=== PATIENT | female | born 1955 | race Caucasian/White ===

== ENCOUNTER 2016-11-05 16:28 | Emergency (ER) | payer OTHER ==
[2016-11-05 16:36] VITALS: BP 123/71
[2016-11-05] MEDS ORDERED: Lidocaine 1% MPF* 2 ML VIAL INJ ONE (17:26)
[2016-11-05] MEDS ORDERED: HYDROcodone/ACETAMIN 5-325 MG* 1 TAB PO ONE ×2 (18:14→18:47)
--- NOTE | 2016-11-05 18:35 | RAD ---
Indication: Right elbow pain. 4 views of the right elbow demonstrates no fracture. No joint effusion is noted. IMPRESSION: No fracture of the right elbow is noted.
--- NOTE | 2016-11-05 18:38 | RAD ---
Indication: Bilateral knee pain. AP, lateral and patellofemoral views of both knees demonstrates bilateral bipolar knee replacement in satisfactory position. No effusion is noted in either knee. IMPRESSION: Bipolar bilateral knee replacement in satisfactory position. No loosening is noted.
[2016-11-05] MEDS ORDERED: Cephalexin CAP* 500 MG PO ONE ×2 (18:46)
--- NOTE | 2016-11-05 20:14 | UC ---
Victor Manuel Persaud Alfonso, scribed for Emilio Mazariegos MD on 11/05/16 at 1728 . Minor Trauma HPI - HPI Summary HPI Summary: This patient is a 61 year old F presenting to [facility] accompanied by with a chief complaint of fall earlier today. Pt reports I fell onto the gravel getting off of the boat and hitting both knees, right elbow, and right hand. The CC is described as an ache. Pt rates the pain 7/10 in severity. Symptoms aggravated and alleviated by nothing. 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 PSHx of bilateral knee replacement. Patient medications reviewed this visit. - History of Current Complaint Chief Complaint: UCUpperExtremity Stated Complaint: ELBOW & KNEES INJURY Time Seen by Provider: 11/05/16 17:19 Hx Obtained From: Patient Onset/Duration: Sudden Onset, Lasting Hours - Earlier today, Still Present Onset Of Pain: Prior To Arrival Severity Initially: Moderate Severity Currently: Moderate Pain Intensity: 7 Pain Scale Used: 0-10 Numeric Mechanism Of Injury: Fall From Height Of: - Boat onto gravel Aggravating Factor(s): Nothing Alleviating Factor(s): Nothing - Allergies/Home Medications Allergies/Adverse Reactions: Allergies Allergy/AdvReac Type Severity Reaction Status Date / Time Amoxicillin Allergy Rash Verified 11/05/16 16:36 Latex Allergy Rash Verified 11/05/16 16:36 Sulfa Antibiotics Allergy Rash Verified 11/05/16 16:36 Home Medications: Home Medications DULoxetine DR CAP* [Cymbalta CAP*] 30 mg PO DAILY 11/05/16 [History Confirmed ] Lansoprazole [Prevacid] 30 mg PO 11/05/16 [History] celeCOXIB CAP* [CeleBREX CAP*] 100 mg PO DAILY 11/05/16 [History Confirmed 11/05] PMH/Surg Hx/FS Hx/Imm Hx - Surgical History Surgical History: Yes Surgery Procedure, Year, and Place: bilat knee replacement, sinus, appy, arthritis to thumd, d&c, bladder lift - Family History Known Family History: Positive: Cardiac Disease - CAD father, Other - Cancer - Social History Alcohol Use: Occasionally Substance Use Type: None Smoking Status (MU): Never Smoked Tobacco Review of Systems Constitutional: Other - Negative fever Musculoskeletal: Other: - Positive bilateral knee, right elbow, and right hand pain. All Other Systems Reviewed And Are Negative: Yes Physical Exam Triage Information Reviewed: Yes Appearance: Well-Appearing, No Pain Distress Vital Signs: Initial Vital Signs Temp 99.2 F 11/05/16 16:31 Pulse 73 11/05/16 16:31 Resp 18 11/05/16 16:31 BP 123/71 11/05/16 16:31 Pulse Ox 99 11/05/16 16:31 Vital Signs Reviewed: Yes Eyes: Positive: Other: - EOMI and MARJ ENT: Positive: Normal ENT inspection Neck: Positive: Supple, Nontender Respiratory: Positive: Chest non-tender, Lungs clear, Normal breath sounds Cardiovascular: Positive: RRR Abdomen Description: Positive: Nontender, Soft Bowel Sounds: Positive: Present Musculoskeletal: Positive: Other: - Tender right elbow. Abrasion at right elbow. 1.5cm sub cutaneous laceration not actively bleeding. Discomfort and mild tenderness at proximal thumb. Good ROM. Both knees with abrasion, full thickness lacerations, and stable to exam. Neurological: Positive: Alert Psychological: Positive: Age Appropriate Behavior Skin Exam: Normal Procedures - Laceration/Wound Repair 1 Location: Other - RUE Elbow Description: Linear Anesthesia: 1.0% - Plain, Lido Irrigated w/ Saline (ccs): 120 - hibiclens Laceration/Wound Explored: contaminated - Cleaned with irrigation by nursing., no foreign body removed Suture Type: Nylon - 5-0 Monosof Number of Sutures: 3 Layer Closure?: No Sterile Dressing Applied?: Yes Diagnostics - Radiology Knee X-Ray Radiology Interpretation Completed By: Radiologist - Bipolar bilateral knee replacement in satisfactory position. No loosening is noted. Elbow X-Ray Radiology Interpretation Completed By: Radiologist - No fracture of the right elbow is noted. Minor Trauma Course/Dx - Course Course Of Treatment: WOUNDS ON RT ELBOW AND RT KNEE CLEANED. NO SUTURES FOR RT KNEE SUPERFICIAL LACERATION. PATIENT REPORTS HER TD IS UTD. - Differential Dx/Diagnosis Provider Diagnoses: RIGHT ELBOW CONTUSION AND LACERATION. BILATERAL KNEE CONTUSIONS. RIGHT KNEE SUPERFICIAL LACERATION. Discharge - Discharge Plan Condition: Stable Disposition: HOME Prescriptions: Cephalexin CAP* [Keflex CAP*] 500 mg PO TID #20 cap Patient Education Materials: Care For Your Stitches (ED), Laceration (ED), Contusion in Adults (ED), Elbow Sprain (ED), Knee Pain (ED) Referrals: No Primary Care Phys,NOPCP [Primary Care Provider] - Additional Instructions: FOLLOW UP WITH YOUR DOCTOR. SUTURES OUT IN 8-10 DAYS. GET RECHECKED FOR ANY WORSENING OF YOUR CONDITION; PAIN, INFECTION OR QUESTIONS OR CONCERNS. The documentation as recorded by the Victor Manuel cruz Alfonso accurately reflects the service I personally performed and the decisions made by me, Emilio Mazariegos MD.
== END 2016-11-05 19:13 | disposition home or self-care (01) ==
LOC: UCEAST 16:28
DX: Z96.653 Presence of artificial knee joint, bilateral (principal); S81.011A Laceration without foreign body, right knee, initial encounter; S80.02XA Contusion of left knee, initial encounter; S51.011A Laceration without foreign body of right elbow, initial encounter; W17.89XA Other fall from one level to another, initial encounter; Y93.89 Activity, other specified; Y92.89 Other specified places as the place of occurrence of the external cause; Y99.8 Other external cause status
CPT/HCPCS: 12001; 99203; A9270-GY; G0463